=== PATIENT | male | born 1960 | race Caucasian/White ===

== ENCOUNTER 2017-08-24 13:49 | Emergency (ER) | END 2017-08-24 16:27 | disposition home or self-care (01) ==

== ENCOUNTER 2017-12-14 11:45 | Emergency (ER) | END 2017-12-14 12:34 | disposition home or self-care (01) ==

== ENCOUNTER 2017-12-26 11:03 | Emergency (ER) | END 2017-12-27 06:45 | disposition home or self-care (01) ==

== ENCOUNTER → 2017-12-26 23:31 | Emergency (ER) | END | disposition left against medical advice (07) ==

== ENCOUNTER 2018-01-24 14:29 | Emergency (ER) | END 2018-01-24 19:06 | disposition left against medical advice (07) ==

== ENCOUNTER 2018-02-03 06:23 | Day surgery (SDC) | END 2018-02-03 12:13 | disposition home or self-care (01) ==

== ENCOUNTER 2018-11-22 08:03 | Emergency (ER) | payer OTHER ==
[~2018-11-22] VITALS: Ht 177.8 cm; Wt 80.7 kg
[~2018-11-22 08:03] MED LIST: ACET500C5 PO; AMOX1TAB10 PO; DOCU-144 PO; GABA300C16 PO; HYDR-3980 PO; MIRT7.5T8 PO; ONDA4TAB14 PO; SERT-165 PO
[2018-11-22 08:11] VITALS: BP 154/84; PULSE 70; RESP 14; Ht 177.8 cm; Wt 80.7 kg
--- NOTE | 2018-11-22 09:14 | ERD ---
ER Documentation Chief Complaint Chief Complaint PT with R wrist pain after GLF, no KO, no deformity. HPI Patient is a 58-year-old male, past medical history of hypertension, DM type II, presents the ER for concerns of right wrist pain after a trip and fall injury [place] the park. Patient states he was walking when he tripped and he landed on his hand, reports FOOSH-like injury. Patient is right-hand dominant. Patient denies any previous fractures or dislocations. Patient denies hitting his head. Patient denies any loss of consciousness. ROS All systems reviewed and are negative except as per history of present illness. Medications Home Meds Active Scripts Acetaminophen* (Tylophen*) 500 Mg Capsule, 1 CAP PO Q6H PRN for PAIN AND OR ELEVATED TEMP, #20 CAP Prov:DONA GORDON PA-C 11/22/18 Amoxicillin/Potassium Clav (Amox-Clav 875-125 mg Tablet) 875-125 mg Tab, 1 TAB PO BID for 10 Days, #20 TAB Prov:DONA GORDON PA-C 01/24/18 Docusate Sodium* (Colace*) 100 Mg Capsule, 100 MG PO TID, #30 CAP Prov:MOSHE GROSSMAN MD 12/26/17 Ondansetron (Ondansetron Odt) 4 Mg Tab.rapdis, 4 MG PO Q6H PRN for NAUSEA AND/OR VOMITING, #10 TAB Prov:MOSHE GROSSMAN MD 12/26/17 Hydrocodone/Acetaminophen ([place] 10-325 Tablet) 1 Each Tablet, 1 TAB PO Q6H PRN for PAIN, #16 TAB Prov:MOSHE GROSSMAN MD 12/26/17 Reported Medications Mirtazapine* (Mirtazapine*) 7.5 Mg Tablet, 7.5 MG PO HS, TAB 12/26/17 Sertraline Hcl* (Sertraline Hcl*) 100 Mg Tablet, 150 MG PO DAILY, #30 TAB 12/26/17 Gabapentin* (Gabapentin*) 300 Mg Capsule, 600 MG PO BID, #180 CAP 12/26/17 Allergies Allergies: Coded Allergies: No Known Allergy (Unverified , 12/26/17) PMhx/Soc History of Surgery: Yes (prostate, hydrochephalus) Anesthesia Reaction: No Hx Neurological Disorder: No Hx Respiratory Disorders: No Hx Cardiac Disorders: No Hx Psychiatric Problems: No Hx Miscellaneous Medical Probl: No Hx Alcohol Use: No Hx Substance Use: No Hx Tobacco Use: No Smoking Status: Never smoker FmHx Family History: No diabetes Physical Exam Vitals Vital Signs Date Temp Pulse Resp B/P (MAP) Pulse Ox O2 O2 Flow FiO2 Time Delivery Rate 11/22/18 98.1 70 14 154/84 98 08:11 (107) Physical Exam GENERAL: Well-developed, well-nourished male. Appears in no acute distress. HEAD: Normocephalic, atraumatic. EYES: Pupils are equally reactive bilaterally. EOMs grossly intact. No conjunctival erythema. ENT: Moist mucous membranes. No uvula deviation. No kissing tonsils. NECK: Supple. No meningismus. Normal range of motion of the neck. LUNG: Clear to auscultation bilaterally. No rhonchi, wheezing, rales or coarse breath sounds. HEART: Regular rate and rhythm. No murmurs, rubs or gallops. EXTREMITIES: Equal pulses bilaterally. No peripheral clubbing, cyanosis or edema. No unilateral leg swelling. NEUROLOGIC: Alert and oriented. Moving all four extremities without any difficulty. Normal speech. Steady gait. SKIN: Normal color. Warm and dry. No rashes or lesions. RUE: No deformity, erythema, ecchymosis. Mild swelling noted to the distal wrist. Normal range of motion of all digits. Decreased range of motion of the wrist. Sensation intact to light touch. Neurovascularly intact. (Able to give thumbs up, make an ok sign, cross digits 2 and 3, thumb to pinky opposition. 2+ RP.) No snuffbox tenderness. Procedures/MDM SPLINT APPLICATION: The patient was verbally consented at bedside prior to splint application. Patient was explained the risks, benefits and alternatives to this procedure. The patient was neurovascularly intact prior to and status post application of the splint. The patient tolerated the procedure well with no complications. Splint type: Velcro wrist splint Extremity: Right wrist Indication: Wrist sprain MEDICAL DECISION MAKING: This is a 58-year-old male presents the ER for concern of wrist pain x2 days. Patient had a trip and fall injury while at the park yesterday. Vital signs were reviewed. Patient was afebrile. Patient was not hypoxic. Extremity was negative for fracture dislocation. See formal report. Patient likely has a wrist pain. Patient was given a wrist splint for comfort. Patient advised to follow-up with an legal specialist for further management of his symptoms. Patient may need an MRI if he continues to have pain is I am unable to rule any ligament or tendon injuries at this time. Low suspicion for dislocation, fracture, septic joint or compartment syndrome. PRESCRIPTIONS: Tylenol DISCHARGE: At this time, patient is stable for discharge and outpatient management. RICE therapy and ROM exercises were advised to avoid stiffness. I have instructed the patient to follow-up with his/her primary care physician in 1-2 days. I have discussed with the patient the possibility of needing to see an legal specialist for further workup and imaging if the pain persists. I have instructed the patient to promptly return to the ER for any new or worsening symptoms including increased pain, swelling, redness, warmth or fever. The patient and/or family expressed understanding of and agreement with this plan. All questions were answered. Home care instructions were provided. Disclaimer: Inadvertent spelling and grammatical errors are likely due to [employer]/dictation software use and do not reflect on the overall quality of patient care. Also, please note that the electronic time recorded on this note does not necessarily reflect the actual time of the patient encounter. Departure Diagnosis: Primary Impression: Wrist injury Encounter type: initial encounter Laterality: unspecified laterality Qualified Codes: S69.90XA - Unspecified injury of unspecified wrist, hand and finger(s), initial encounter Condition: Fair Patient Instructions: Wrist Sprain Referrals: [facility] YOU HAVE RECEIVED A MEDICAL SCREENING EXAM AND THE RESULTS INDICATE THAT YOU DO NOT HAVE A CONDITION THAT REQUIRES URGENT TREATMENT IN THE EMERGENCY DEPARTMENT. FURTHER EVALUATION AND TREATMENT OF YOUR CONDITION CAN WAIT UNTIL YOU ARE SEEN IN YOUR DOCTORS OFFICE WITHIN THE NEXT 1-2 DAYS. IT IS YOUR RESPONSIBILITY TO MAKE AN APPOINTMENT FOR FOLOW-UP CARE. IF YOU HAVE A PRIMARY DOCTOR --you should call your primary doctor and schedule an appointment IF YOU DO NOT HAVE A PRIMARY DOCTOR YOU CAN CALL OUR PHYSICIAN REFERRAL HOTLINE AT IF YOU CAN NOT AFFORD TO SEE A PHYSICIAN YOU CAN CHOSE FROM THE FOLLOWING [facility] [address] [facility]. [facility] [address] [facility] [address] [facility]. [facility] [address] [facility]. [facility] [address] [facility]. [facility]. [address] [facility]. [facility] YOU HAVE RECEIVED A MEDICAL SCREENING EXAM AND THE RESULTS INDICATE THAT YOU DO NOT HAVE A CONDITION THAT REQUIRES URGENT TREATMENT IN THE EMERGENCY DEPARTMENT. FURTHER EVALUATION AND TREATMENT OF YOUR CONDITION CAN WAIT UNTIL YOU ARE SEEN IN YOUR DOCTORS OFFICE WITHIN THE NEXT 1-2 DAYS. IT IS YOUR RESPONSIBILITY TO MAKE AN APPOINTMENT FOR FOLOW-UP CARE. IF YOU HAVE A PRIMARY DOCTOR --you should call your primary doctor and schedule and appointment IF YOU DO NOT HAVE A PRIMARY DOCTOR YOU CAN CALL OUR PHYSICIAN REFERRAL HOTLINE AT . IF YOU CAN NOT AFFORD TO SEE A PHYSICIAN YOU CAN CHOSE FROM THE FOLLOWING [facility] INSTITUTIONS: [facility] [address] [place] [address] [facility] [address] [place] [address] [facility] [address] [place] [address] Additional Instructions: Call your primary care doctor TOMORROW for an appointment during the next 1-2 days.See the doctor sooner or return here if your condition worsens before your appointment time. DONA GORDON PA-C Nov 22, 2018 09:14
== END 2018-11-22 09:11 | disposition home or self-care (01) ==
LOC: FTE 08:03
DX: S69.91XA Unspecified injury of right wrist, hand and finger(s), initial encounter (principal); I10 Essential (primary) hypertension; E11.9 Type 2 diabetes mellitus without complications; W01.0XXA Fall on same level from slipping, tripping and stumbling without subsequent striking against object, initial encounter; Y92.89 Other specified places as the place of occurrence of the external cause
CPT/HCPCS: 29125; 73110; Z7502; Z7610